=== PATIENT | male | born 1980 | race Caucasian/White ===

== ENCOUNTER 2017-05-12 09:18 | Observation (INO) ==
[2017-05-12] MEDS ORDERED: Ondansetron 4 MG/2 ML VIAL IVP ONE (09:26)
--- NOTE | 2017-05-12 09:43 | Emergency Department Note ---
Disposition Clinical Impression: Hyperglycemia Disposition: Admitted As Inpatient Condition: Good Reasons to Return/Additional Instructions: . Referrals: Catie Jansen DO [Primary Care Provider] - Forms: ED Satisfaction Letter Recheck wound or abnormal lab - General Chief Complaint: ED Neuro Symptoms/Deficit Stated Complaint: high blood sugar Time Seen by Provider: 05/12/17 09:25 Source: patient Mode of arrival: private vehicle Limitations: no limitations Nursing Notes Reviewed: Yes Vital Signs Reviewed: Yes - History of Present Illness HPI Narrative: 36-year-old male history of type 2 diabetes that is poorly controlled who presents to the ER from the residency clinic due to hyperglycemia and visual changes. Patient states he got off work last night was going to his appointment for routine follow-up and was told to come here. He states that he was told that he might go home fall asleep and never wake up again. Patient reports they checked his glucose therapy office today and it was too high to read. He also states he has had some visual changes. He actually reports that his glucose has been elevated for the last month. He does report polydipsia and polyphagia as well as polyuria. Reports nausea without vomiting or diarrhea. No abdominal pain. Also complaining of left foot pain for 2 months for which she has an x-ray ordered but was requesting to have it done today. No trauma. No other complaints. Pt Subjective Complaint: abnormal lab(s) Initial Visit (ago): hour(s) Symptoms Since Prior Visit: no new symptoms Associated symptoms: nausea - Related Data Home Medications Medication Instructions Recorded Confirmed Gabapentin [Neurontin] 300 mg PO TID 11/23/15 05/12/17 Furosemide [Lasix] 40 mg PO DAILY 05/12/17 05/12/17 Ibuprofen [Motrin] 600 mg PO Q8HR PRN 05/12/17 05/12/17 Insulin LISPRO [HumaLOG] 33 units SQ TIDWM 05/12/17 05/12/17 Lisinopril [Zestril] 20 mg PO DAILY 05/12/17 05/12/17 Metoprolol [Lopressor] 25 mg PO BID 05/12/17 05/12/17 Omeprazole [PriLOSEC] 40 mg PO DAILY 05/12/17 05/12/17 Previous Rx's Medication Instructions Recorded Insulin DETEMIR [Levemir] 40 unit SQ BID 30 Days 05/31/15 Metformin HCl [Glucophage] 1,000 mg PO BID #60 tablet 04/16/16 Allergies Allergy/AdvReac Type Severity Reaction Status Date / Time ciprofloxacin [From Cipro] Allergy Rash Verified 05/12/17 09:24 All systems ED: reviewed and negative except as stated. Constitutional: Denies: fever Cardiovascular: Denies: chest pain Respiratory: Denies: dyspnea Gastrointestinal: Reports: nausea. Denies: abdominal pain, vomiting, diarrhea Genitourinary: Reports: frequency. Denies: dysuria, hematuria Past Medical History - Past Medical History Attestation: Yes The following information was validated with the patient. Source: patient Medical history: Reports: diabetes, hypertension Surgical history: Reports: other Psychiatric history: Reports: no psych history - Social History Smoking Status: Never smoker Smokeless Tobacco Status: No Alcohol use: Reports: none Drug use: Reports: none, other Physical Exam - General Limitations: no limitations General appearance: alert, in no apparent distress - Head Head exam: atraumatic, normocephalic - Eye Eye exam: Present: normal appearance - ENT ENT exam: normal exam - Neck Neck exam: Present: normal inspection - Chest Chest inspection: Present: normal inspection, symmetric chest wall rise - Respiratory Respiratory exam: Present: normal lung sounds bilaterally - Cardiovascular Cardiovascular exam: Present: regular rate, normal rhythm, normal heart sounds - Abdominal Exam Abdominal exam: Present: soft, Non-Tender. Absent: tenderness, distention, rigidity - Extremities Exam Extremities exam: Present: normal inspection, full ROM - Expanded Upper Extremity Exam Shoulder exam: Present: normal inspection, full ROM Arm exam: Present: normal inspection, full ROM Elbow exam: Present: normal inspection, full ROM Forearm/Wrist exam: Present: normal inspection, full ROM Hand exam: Present: normal inspection, full ROM - Expanded Lower Extremity Exam Hip/Pelvis exam: Present: normal inspection, full ROM Upper leg exam: Present: normal inspection, full ROM Knee exam: Present: normal inspection, full ROM Lower leg exam: Present: normal inspection, full ROM Ankle exam: Present: normal inspection, full ROM Foot/toe exam: Present: normal inspection, full ROM, tenderness (Tenderness along the lateral aspect of the left foot.) - Skin Skin exam: Present: warm, dry, intact Course Course Narrative: Patient seen and examined. Vital signs reviewed. We will get baseline labs to evaluate for DKA as well as an x-ray of the left foot. Patient given IV fluids and Zofran. - Reevaluation(s) Reevaluation #1: Discussed results of labs and imaging with the patient. Vital Signs Temperature 98.0 F 05/12/17 09:19 Pulse Rate 79 05/12/17 09:19 Respiratory Rate 16 05/12/17 09:19 Blood Pressure 137/87 05/12/17 09:19 O2 Sat by Pulse Oximetry 95 05/12/17 09:19 Temperature 98.0 F 05/12/17 09:19 Pulse Rate 79 05/12/17 09:19 Respiratory Rate 16 05/12/17 09:19 Blood Pressure 137/87 05/12/17 09:19 O2 Sat by Pulse Oximetry 95 05/12/17 09:19 Oxygen Delivery Oxygen Delivery Room Air Recheck wound or abnormal lab - MDM Narrative Medical decision making narrative: 36-year-old male presents to the ER from his primary care office for hypoglycemia. Reports he is poorly controlled and that he has had high readings for over a month. Was having some visual changes. No chest pain or shortness of breath. He has been nauseous but no vomiting. Patient noted to be hyperglycemic here of 714. Given 2 L of IV fluids as well as started on insulin drip. No gap. He is not acidotic. Admitted to the hospitalist service. - Lab Data Lab results reviewed: Yes I reviewed the patient's lab results. Result diagrams: 05/12/17 09:59 05/12/17 09:59 Lab Results 05/12/17 05/12/17 05/12/17 Range/Units 09:23 09:24 09:59 WBC 7.6 (4.3-11.1) K/mcL RBC 5.41 (4.19-5.50) M/mcL Hgb 14.2 (12.9-16.9) g/dL Hct 43.3 (37.5-50.1) % MCV 80.0 L (83.0-100.0) fL MCH 26.2 L (28.0-33.3) pg MCHC 32.8 (31.6-35.5) g/dL RDW 13.1 (11.5-14.5) % Plt Count 166 (140-400) K/mcL MPV 10.0 (9.4-12.4) fL Immature Gran % 0.5 (0-4) % Seg Neutrophils % 69.5 % Lymphocytes % 20.0 % Monocytes % 8.6 % Eosinophils % 0.7 % Basophils % 0.7 % Neutrophils # 5.3 (1.6-8.9) K/mcL Lymphocytes # 1.5 (0.6-4.6) K/mcL Monocytes # 0.7 (0.0-1.3) K/mcL Eosinophils # 0.1 (0.0-0.6) K/mcL Basophils # 0.1 (0.0-0.2) K/mcL VBG pH (7.32-7.42) pH Units VBG pCO2 (41-51) mmHg VBG pO2 (25-50) mmHg VBG HCO3 (21-27) mEq/L Sodium (136-145) mEq/L Potassium (3.5-5.1) mEq/L Chloride (98-107) mEq/L Carbon Dioxide (23-29) mEq/L BUN (6-20) mg/dL Creatinine (0.70-1.30) mg/dL Est GFR ( Amer) (> 60) Est GFR (Non-Af Amer) (> 60) BUN/Creatinine Ratio (6-26) Glucose (70-105) mg/dL POC Glucose > 600 H* > 600 H* (58-89) Calculated Osmolality (280-300) Calcium (8.6-10.3) mg/dL Beta-Hydroxybutyric Acd (0.02-0.27) mmol/L 05/12/17 05/12/17 Range/Units 09:59 10:15 WBC (4.3-11.1) K/mcL RBC (4.19-5.50) M/mcL Hgb (12.9-16.9) g/dL Hct (37.5-50.1) % MCV (83.0-100.0) fL MCH (28.0-33.3) pg MCHC (31.6-35.5) g/dL RDW (11.5-14.5) % Plt Count (140-400) K/mcL MPV (9.4-12.4) fL Immature Gran % (0-4) % Seg Neutrophils % % Lymphocytes % % Monocytes % % Eosinophils % % Basophils % % Neutrophils # (1.6-8.9) K/mcL Lymphocytes # (0.6-4.6) K/mcL Monocytes # (0.0-1.3) K/mcL Eosinophils # (0.0-0.6) K/mcL Basophils # (0.0-0.2) K/mcL VBG pH 7.38 (7.32-7.42) pH Units VBG pCO2 44 (41-51) mmHg VBG pO2 67 H (25-50) mmHg VBG HCO3 26 (21-27) mEq/L Sodium 126 L (136-145) mEq/L Potassium 4.7 (3.5-5.1) mEq/L Chloride 91 L (98-107) mEq/L Carbon Dioxide 25 (23-29) mEq/L BUN 21 H (6-20) mg/dL Creatinine 1.07 (0.70-1.30) mg/dL Est GFR ( Amer) > 60 (> 60) Est GFR (Non-Af Amer) > 60 (> 60) BUN/Creatinine Ratio 20 (6-26) Glucose 714 H* (70-105) mg/dL POC Glucose (58-89) Calculated Osmolality 299 (280-300) Calcium 9.4 (8.6-10.3) mg/dL Beta-Hydroxybutyric Acd 0.46 H (0.02-0.27) mmol/L - Radiology Data Radiology results reviewed: Yes I reviewed the patient's radiology results. Foot X-Ray 05/12/17 09:34 IMPRESSION: 1. No significant change without acute abnormality. D/ / Orestes Andrea MD / Orestes Andrea MD Interpreting Provider: Orestes Andrea MD S.B.A.R. - S.B.A.R. Situation: Demographics, MOA Background: Presenting Complaint, Relevant PMH, Meds, & Allergies Assessment: Course and respsone to treatment, Exam Concerns, Patient/Family Expectation, Pertinant Lab Results Recommendation: Barrier(s) to disposition, Recommendation based on pending studies, treatments, or consults S.B.A.RSu Report Given to: Dr. Lul Pabon Repor Time: 12:14
[2017-05-12] MEDS: 0.9 % Sodium Chloride 1,000 ML IVC SCH ×2 (09:57→11:02)
[2017-05-12 10:11] LABS: Basophils # 0.1 K/mcL (0.0-0.2); Basophils % 0.7 %; Eosinophils # 0.1 K/mcL (0.0-0.6); Eosinophils % 0.7 %; Hematocrit 43.3 % (37.5-50.1); Hemoglobin 14.2 g/dL (12.9-16.9); Immature Granulocytes % 0.5 % (0-4); Lymphocytes # 1.5 K/mcL (0.6-4.6); Mean Corpuscular HGB Conc 32.8 g/dL (31.6-35.5); Mean Corpuscular Hemoglobin 26.2 pg (28.0-33.3); Monocytes # 0.7 K/mcL (0.0-1.3); Monocytes % 8.6 %; Neutrophils # 5.3 K/mcL (1.6-8.9); Platelet Count 166 K/mcL (140-400); Red Blood Count 5.41 M/mcL (4.19-5.50); Red Cell Distribution Width 13.1 % (11.5-14.5); Segmented Neutrophils % 69.5 %
[2017-05-12] MEDS ORDERED: Insulin Human Regular 10 UNIT in 0.9 % Sodium Chloride 10 ML IV ONE (10:13)
[2017-05-12 10:18] LABS: Beta-Hydroxybutyric Acid 0.46 mmol/L (0.02-0.27)
[2017-05-12 10:19] LABS: VBG HCO3 26 mEq/L (21-27); VBG PCO2 44 mmHg (41-51); VBG PH 7.38 pH Units (7.32-7.42); VBG PO2 67 mmHg (25-50)
--- NOTE | 2017-05-12 10:38 | Emergency Department Note ---
START Narrative - START START: I examined this patient and my medical decision-making was reviewed with the Resident Physician. I agree with the documented findings, disposition and treatment plan as described except to the extent set forth below. 36-year-old male presents emergency room for elevated blood sugar. Patient appears to be in DKA with elevated serum ketones. He has a history of DKA in the past. No other symptoms other than he says he has been urinating a lot and having excessive thirst. He denies any recent sickness or illness. No vomiting. No diarrhea. No urinary complaints other than polyuria. No fevers or chills. No chest pain shortness of breath. Patient will need to be admitted. IV fluids and insulin. Critical care time of 35 minutes spent a medical management of hyperglycemia and concerns for diabetic ketoacidosis.
[2017-05-12 11:08] LABS: BUN/Creatinine Ratio 20 (6-26); Blood Urea Nitrogen 21 mg/dL (6-20); Calcium 9.4 mg/dL (8.6-10.3); Carbon Dioxide 25 mEq/L (23-29); Chloride 91 mEq/L (98-107); Glucose 714 mg/dL (70-105); Osmolality,Calculated 299 (280-300); Potassium 4.7 mEq/L (3.5-5.1); Sodium 126 mEq/L (136-145); eGFR For African Americans > 60 (> 60); eGFR For Non-African Americans > 60 (> 60)
[2017-05-12] MEDS ORDERED: 0.9 % Sodium Chloride 1,000 ML IVC SCH (11:30)
[2017-05-12] MEDS: Insulin Human Regular 100 UNIT in 0.9 % Sodium Chloride 100 ML IVC SCH ×2 (12:00→18:29)
[2017-05-12] MEDS ORDERED: Naloxone 0.4 MG/ML INJ IVP PRN (13:13)
[2017-05-12] MEDS ORDERED: Ondansetron 4 MG/2 ML VIAL IVP PRN (13:13)
[2017-05-12] MEDS ORDERED: Acetaminophen 325 MG TABLET PO PRN (13:13)
[2017-05-12] MEDS ORDERED: D5% in 0.45% NACL 1,000 ML IVC PRN (13:18)
[2017-05-12] MEDS ORDERED: Insulin Regular, Human 100 UNIT/ML IV PRN (13:18)
[2017-05-12] MEDS ORDERED: *HR* Dextrose 50 % in Water (Syg) 50 ML SYRINGE IVP PRN (13:18)
[2017-05-12] MEDS ORDERED: *HR* Morphine 2 MG/ML SYRINGE IVP ONE (13:19)
--- NOTE | 2017-05-12 13:41 | Internal Med History&Physical ---
Date of Encounter: 05/12/17 Time of Encounter: 13:00 Assessment and Plan (1) Hyperosmolar nonketotic coma in diabetes Current visit: No Status: Acute 1 patient has been experiencing blurry vision as well as polyuria polydipsia polyphagia. He has not been taking his basal insulin for some time now his blood sugars have been reading high on his Accu-Chek machine since April. He was seen as PCP today and again blood sugar reading high-he was 700 in the ER. Initiated on insulin drip as well as IV fluids we will continue insulin drip Accu-Cheks every hour and titrate per protocol We will monitor electrolytes every 4 hours and adjust fluids/electrolytes as needed We will consult director of social work concerning -insurance and insulin Consult labor standards director We will check urinalysis for any possible infectious process (2) HTN (hypertension) Current visit: No Status: Acute Presently controlled we will continue with home medications Qualifiers: Hypertension type: essential hypertension Qualified Code(s): I10 - Essential (primary) hypertension (3) DVT prophylaxis Current visit: No Status: Acute [facility] Internal Medicine - H&P: HPI Chief complaint: blurry vision Admitted From: Emergency Dept Plans for Post Hospital Care: Home History of present illness: Mr. Rose is a 36 year old male past medical history of diabetes2 hypertension. Patient is a diabetic he went to a scheduled PCP appointment today blood sugar was found to be high, he has been experiencing visual changes or blurry vision for the past month in the past few weeks he has been experiencing polyuria and polyphagia polydipsia nausea no vomiting diarrhea or abdominal pain. Accu-Cheks have been reading "high" since April Patient reports that he has not been taking his long-acting insulin for some time now, due to changes in his insurance, and he was not able to afford insulin He states "it was still warm out the last time I took my basal insulin" he has been taking his oral metformin as well as sliding scale insulin. He also admits to recent upper respiratory infection but does not have any urinary complaints. He also complains of left foot pain that has been going on for 2 months denies any trauma. He was seen in the emergency room and lab work revealed blood sugars in the 700 and iron gap was 10 and leukocytosis or tachycardia. He has been given IV fluid and initiated on insulin drip. X-ray of right foot with no fractures or acute changes He has been admitted for further workup evaluation. I did review this case with Dr. Mccarty who agrees with plan. Past Med Surg Social Fam HX - Past Medical History Medical history: diabetes, hypertension Psychiatric history: no psych history - Past Surgical History Surgical History: other - Social History Smoking Status: Never smoker Smokeless Tobacco Status: No Alcohol use: none Drug use: none, other - Family History Mother Living Status: Still Living Hx Family Cardiac Disorders: Yes (Heart problem, HTN) Hx Family Endocrine Disorder: Yes (Diabetes, underwent amputation recently.) Father Living Status: Hx Family Cardiac Disorders: Yes (Heart problem, HTN) Hx Family Endocrine Disorder: Yes (Diabetes) Internal Medicine - H&P: Meds Insulin DETEMIR [Levemir] 40 unit SQ BID 30 Days 05/31/15 [Rx] Gabapentin [Neurontin] 300 mg PO TID 11/23/15 [History] Metformin HCl [Glucophage] 1,000 mg PO BID #60 tablet 04/16/16 [Rx] Furosemide [Lasix] 40 mg PO DAILY 05/12/17 [History] Ibuprofen [Motrin] 600 mg PO Q8HR PRN 05/12/17 [History] Insulin LISPRO [HumaLOG] 33 units SQ TIDWM 05/12/17 [History] Lisinopril [Zestril] 20 mg PO DAILY 05/12/17 [History] Metoprolol [Lopressor] 25 mg PO BID 05/12/17 [History] Omeprazole [PriLOSEC] 40 mg PO DAILY 05/12/17 [History] 3 Allergy/AdvReac Type Severity Reaction Status Date / Time ciprofloxacin [From Cipro] Allergy Rash Verified 05/12/17 09:24 All Systems PM: A 10-system review of systems was performed and is negative for pertinent findings except as documented above in the HPI. - Constitutional Constitutional: no chills, no fever(s), no night sweats - EENT Eyes: no change in vision, no discharge, no pain, no photophobia Nose, mouth and throat: no dysphagia, no nasal discharge, no neck pain, no sore throat - Cardiovascular Cardiovascular ROS IM: no chest pain, no diaphoresis, no dyspnea, no lightheadedness, no palpitations, no syncope - Respiratory Respiratory: no cough, no dyspnea, no wheezing, no excessive phlegm production - Gastrointestinal Gastrointestinal: nausea - Genitourinary Additional comments: Polyuria - Integumentary Integumentary IM: sores, no rash, no unusual bruising - Neurological Neurological ROS: no confusion, no convulsions, no focal weakness, no numbness, no tingling, no tremor(s) - Endocrine Endocrine IM: polydipsia, polyphagia, polyuria - Hematologic/Lymphatic Hematologic/Lymphatic: no easy bruising - Constitutional Vitals: Temp Pulse Resp BP Pulse Ox 98.0 F 79 16 137/87 95 05/12/17 09:19 05/12/17 09:19 05/12/17 09:19 05/12/17 09:19 05/12/17 09:19 General appearance: Present: A&O X 3, answers questions appropriately - Head Head exam: Present: atraumatic, normocephalic - Eye Eye exam: Present: PERRL, conjuntiva pink, sclera anicteric Pupils: Present: PERRL - Neck Neck exam general surgery: Present: supple, trachea midline. Absent: lymphadenopathy - Respiratory Respiratory exam: Present: CTAB. Absent: accessory muscle use, rales, rhonchi, wheezes - Cardiovascular Cardiovascular exam: Present: RRR, +S1, +S2. Absent: diastolic murmur, gallop, rubs, systolic murmur - GI/Abdominal GI/Abdominal exam: Present: normal bowel sounds, soft, no peritoneal signs. Absent: distended, tenderness - Extremities Exam Extremities exam: Present: tenderness, warm, radial pulses palpable and symmetrical. Absent: calf tenderness, cyanotic, pedal edema - Neurological Exam Neurological exam: Present: CN II-XII intact, oriented X3, no focal deficits. Absent: pronater drift, facial droop, speech deficit - Skin Skin exam: Present: dry, intact Internal Med - H&P Results - Labs CBC & Chem 7: 05/12/17 09:59 05/12/17 09:59 Labs: Short CBC 05/12/17 Range/Units 09:59 WBC 7.6 (4.3-11.1) K/mcL Hgb 14.2 (12.9-16.9) g/dL Hct 43.3 (37.5-50.1) % Plt Count 166 (140-400) K/mcL Neutrophils # 5.3 (1.6-8.9) K/mcL BMP 05/12/17 09:59 Sodium 126 L Potassium 4.7 Chloride 91 L Carbon Dioxide 25 BUN 21 H Creatinine 1.07 Glucose 714 H* Calcium 9.4 - ABG Interpretation ABG results: 05/12/17 10:15 VBG pH 7.38 VBG pCO2 44 VBG pO2 67 H VBG HCO3 26 Interpretation: normal - Impressions ITS Impressions Foot X-Ray 05/12/17 09:34 IMPRESSION: 1. No significant change without acute abnormality. D/ / Orestes Andrea MD / Orestes Andrea MD Interpreting Provider: Orestes Andrea MD - Diagnostic Studies Other Images Additional comments: Foot X-Ray 05/12/17 09:34
[2017-05-12 13:54] LABS: VBG HCO3 28 mEq/L (21-27); VBG PCO2 50 mmHg (41-51); VBG PH 7.36 pH Units (7.32-7.42); VBG PO2 46 mmHg (25-50)
[2017-05-12 14:13] LABS: Bilirubin,Urine Negative (Negative); Blood,Urine Negative (Negative); Clarity,Urine Clear (Clear); Color,Urine Yellow (Yellow); Glucose,Urine (UA) >=1000 mg/dL (Normal); Ketones,Urine Negative (Negative); Leukocyte Esterase,Urine Negative (Negative); Nitrite,Urine Negative (Negative); PH,Urine 6.5 pH Units (5.0-8.0); Protein,Urine Negative (Neg-Trace); Specific Gravity,Urine 1.022 (1.010-1.025); Urobilinogen,Urine Normal (Normal)
--- NOTE | 2017-05-12 14:13 | Event Note ---
Date of Encounter: 05/12/17 Time of Encounter: 14:01 Patient seen and examined with nurse practitioner. Hyperglycemic hyperosmolar state due to noncompliance with long-acting insulin. Will hydrate start insulin drip. all source intelligence to see patient. Patient is full code.
[2017-05-12] MEDS: Gabapentin 300 MG CAPSULE PO SCH ×2 (15:07→21:35)
[2017-05-12] MEDS ORDERED: Insulin Human Regular 100 UNIT in 0.9 % Sodium Chloride 100 ML IVC SCH (17:15)
[2017-05-12] MEDS: D5% in 0.45% NACL w KCl 20 MEQ/1,000 ML MLS IVC PRN ×2 (17:16→21:36)
[2017-05-12 18:39] LABS: BUN/Creatinine Ratio 17 (6-26); Blood Urea Nitrogen 17 mg/dL (6-20); Calcium 9.3 mg/dL (8.6-10.3); Carbon Dioxide 31 mEq/L (23-29); Chloride 98 mEq/L (98-107); Glucose 159 mg/dL (70-105); Osmolality,Calculated 285 (280-300); Potassium 4.3 mEq/L (3.5-5.1); Sodium 135 mEq/L (136-145); eGFR For African Americans > 60 (> 60); eGFR For Non-African Americans > 60 (> 60)
[2017-05-12 18:59] LABS: Alanine Aminotransferase 46 Units/L (7-52); Albumin 3.7 g/dL (3.5-5.7); Albumin/Globulin Ratio 1.1 (1.1-2.2); Alkaline Phosphatase 87 Units/L (34-104); Aspartate Amino Transferase 36 Units/L (13-39); Bilirubin,Direct 0.1 mg/dL (0.0-0.2); Bilirubin,Indirect 0.4 mg/dL (0.0-1.2); Bilirubin,Total 0.5 mg/dL (0.3-1.0); Globulin 3.5 g/dL (2.4-3.5); Total Protein 7.2 g/dL (6.4-8.9)
[2017-05-12] MEDS ORDERED: *HR* HYDROcodone/Acet 5/325 mg TABLET PO PRN (19:01)
[2017-05-12] MEDS ORDERED: D5% in Water 1,000 ML IVC PRN (20:46)
[2017-05-12] MEDS ORDERED: Insulin LISPRO 300 UNITS/3 ML VIAL SQ SCH (21:00)
[2017-05-12 21:38] LABS: VBG HCO3 28 mEq/L (21-27); VBG PCO2 53 mmHg (41-51); VBG PH 7.34 pH Units (7.32-7.42); VBG PO2 56 mmHg (25-50)
[2017-05-12] MEDS: Insulin DETEMIR 100 UNIT/ML X5UNITS SQ SCH (22:40)
[2017-05-13 01:40] LABS: Estimated Average Glucose > 355 mg/dl; Hemoglobin A1C >= 14.1 %
[2017-05-13 01:42] LABS: BUN/Creatinine Ratio 17 (6-26); Blood Urea Nitrogen 16 mg/dL (6-20); Calcium 8.5 mg/dL (8.6-10.3); Carbon Dioxide 28 mEq/L (23-29); Chloride 99 mEq/L (98-107); Glucose 144 mg/dL (70-105); Osmolality,Calculated 280 (280-300); Potassium 4.2 mEq/L (3.5-5.1); Sodium 133 mEq/L (136-145); eGFR For African Americans > 60 (> 60); eGFR For Non-African Americans > 60 (> 60)
[2017-05-13 05:43] LABS: Basophils % 0.6 %; Eosinophils # 0.1 K/mcL (0.0-0.6); Eosinophils % 1.6 %; Hematocrit 36.6 % (37.5-50.1); Immature Granulocytes % 0.6 % (0-4); Lymphocytes # 1.9 K/mcL (0.6-4.6); Lymphocytes % 27.9 %; Mean Corpuscular HGB Conc 32.5 g/dL (31.6-35.5); Mean Corpuscular Hemoglobin 26.7 pg (28.0-33.3); Mean Corpuscular Volume 82.2 fL (83.0-100.0); Mean Platelet Volume 9.8 fL (9.4-12.4); Monocytes # 0.6 K/mcL (0.0-1.3); Monocytes % 9.2 %; Neutrophils # 4.1 K/mcL (1.6-8.9); Platelet Count 131 K/mcL (140-400); Red Blood Count 4.45 M/mcL (4.19-5.50); Red Cell Distribution Width 13.2 % (11.5-14.5); Segmented Neutrophils % 60.1 %
[2017-05-13 05:44] LABS: BUN/Creatinine Ratio 16 (6-26); Blood Urea Nitrogen 16 mg/dL (6-20); Calcium 8.2 mg/dL (8.6-10.3); Carbon Dioxide 28 mEq/L (23-29); Chloride 99 mEq/L (98-107); Glucose 222 mg/dL (70-105); Magnesium 1.6 mg/dL (1.6-2.6); Osmolality,Calculated 280 (280-300); Potassium 4.6 mEq/L (3.5-5.1); Sodium 131 mEq/L (136-145); eGFR For African Americans > 60 (> 60); eGFR For Non-African Americans > 60 (> 60)
[2017-05-13 05:47] LABS: Hemoglobin 11.9 g/dL (12.9-16.9)
[2017-05-13] MEDS ORDERED: *HR* Enoxaparin 40 MG/0.4 ML SYRINGE SQ SCH (06:00)
[2017-05-13] MEDS: Gabapentin 300 MG CAPSULE PO SCH ×2 (07:54→16:14)
[2017-05-13] MEDS: Insulin DETEMIR 100 UNIT/ML X5UNITS SQ SCH (07:54)
[2017-05-13] MEDS: Insulin LISPRO 300 UNITS/3 ML VIAL SQ SCH ×4 (07:55→12:12)
--- NOTE | 2017-05-13 08:38 | Discharge Summary ---
<Ochoa Delacruz - Last Filed: 05/13/17 09:55> Date of Encounter: 05/13/17 Time of Encounter: 08:26 - Discharge Diagnosis (1) Hyperosmolar nonketotic coma in diabetes Priority: Primary Status: Acute (2) Insulin dependent diabetes mellitus Priority: Secondary Status: Chronic (3) HTN (hypertension) Priority: Secondary Status: Chronic Qualifiers: Hypertension type: essential hypertension Qualified Code(s): I10 - Essential (primary) hypertension - Discharge Medications Prescriptions: Insulin DETEMIR [Levemir Flextouch] 100 unit SQ BID #1 insuln.pen Home Medications: Gabapentin [Neurontin] 300 mg PO TID 11/23/15 [History] Metformin HCl [Glucophage] 1,000 mg PO BID #60 tablet 04/16/16 [Rx] Furosemide [Lasix] 40 mg PO DAILY 05/12/17 [History] Ibuprofen [Motrin] 600 mg PO Q8HR PRN 05/12/17 [History] Insulin LISPRO [HumaLOG] 33 units SQ TIDWM 05/12/17 [History] Lisinopril [Zestril] 20 mg PO DAILY 05/12/17 [History] Metoprolol [Lopressor] 25 mg PO BID 05/12/17 [History] Omeprazole [PriLOSEC] 40 mg PO DAILY 05/12/17 [History] Insulin DETEMIR [Levemir Flextouch] 100 unit SQ BID #1 insuln.pen 05/13/17 [Rx] Allergies/Adverse Reactions: 3 Allergy/AdvReac Type Severity Reaction Status Date / Time ciprofloxacin [From Cipro] Allergy Rash Verified 05/12/17 09:24 Date of admission: 05/12/17 18:03 Primary care physician: Catie Jansen DO Discharging clinician: Ochoa Delacruz Anticipated date of discharge: 05/13/17 - Patient Status Disposition: Home, Self-Care Condition: Good Functional capacity at discharge: independent ambulation Overall status at discharge: patient is back to baseline - Discharge Instructions Instructions: Diabetic Ketoacidosis (DC), Diabetes Mellitus Type 1 in Adults ( DC), Diabetes Mellitus Type 2 in Adults (DC) Follow Up With: Catie Jansen DO [Primary Care Provider] - 05/19/17 10:00 am Additional Instructions: Follow up with PCP within 1 week of hospital discharge. Keep a log of your blood glucose and take with you to your family doctor. - Diet and Activity Activity: resume usual activities as tolerated Diet: diabetic diet Hospital course: Mr. Rose is a 36 year old male who presented to [facility] ED on 05/12/2016 at 09: 34 from residency clinic due to hyperglycemia and visual changes. Patient stated then that he had been experiencing blurry vision, polydypsia, polyphagia , and polyuria. He stated that his glucose readings at home had been high as well. Patient states that his insurance coverage lapsed some time ago "when it was still warm out," and that he has not had access to his insulin since then. Patient's glucose in the the ED was 714 without an elevated anion gap and he was subsequently diagnosed with hyperosmolar nonketotic acidosis. Patient was admitted to and started on an insulin drip as well as IV fluids. Mr. Rose' s glucose level has since been in the 140-180 range and he symptoms have resolved. He has no acute compaints at the time and he states that his blurry vision, polyuria, polydypsia, and polyphagia have resoved. He states that he his feeling well and that his insurance has recently been reinstated and that he has already called in a prescription for his Levemir. He is also on sliding scale insulin at home and will be going home on Levemir 40 units twice a day. He states he already has a glucometer at home and has the necessary supplies. - Time Spent with Patient Total time spent providing and/or coordinating discharge services: Greater than 30 minutes - Constitutional Vitals: Temp Pulse Resp BP Pulse Ox 97.7 F 63 17 123/70 99 05/13/17 07:28 05/13/17 08:11 05/13/17 07:28 05/13/17 07:28 05/13/17 07:28 General appearance: Present: A&O X 3, morbidly obese, pleasant, no acute distress, answers questions appropriately - Head Head exam: Present: normal inspection - Eye Eye exam: Present: normal appearance, PERRL, conjuntiva pink. Absent: conjunctival injection, nystagmus, scleral icterus - Neck Neck exam general surgery: Present: normal inspection - Respiratory Respiratory exam: Present: CTAB - Cardiovascular Cardiovascular exam: Present: RRR, +S1, +S2. Absent: diastolic murmur, gallop, rubs, systolic murmur - GI/Abdominal GI/Abdominal exam: Present: normal bowel sounds, soft, no peritoneal signs <Eldon Adamson - Last Filed: 05/13/17 17:24> Date of Encounter: 05/13/17 Date of admission: 05/12/17 13:53 Primary care physician: Catie Jansen DO Consults: 05/12/17 14:04 Consult to Senior Field Engineer [CONS] Routine Comment: Reason for Consult: Insulin education, diet Hospital course: Mr. Rose is a 36 year old male - Time Spent with Patient Total time spent providing and/or coordinating discharge services: - Constitutional Vitals: Temp Pulse Resp BP Pulse Ox 97.7 F 63 17 115/62 99 05/13/17 11:28 05/13/17 12:20 05/13/17 11:28 05/13/17 12:20 05/13/17 11:28 - Attending Attestation I examined this patient and my medical decision-making was reviewed with the Resident Physician Dr. Delacruz. I agree with the documented findings, disposition and treatment plan as described except to the extent set forth below. This is 36 y/o M admitted with severe hyperglycemia hyper osmolar state. With IV hydration and Insulin gtt his symptoms improved. He ran out of his insulin for few days, seems to be non compliance with insulin. So counseled the pt aboout importance of taking his inuslin regularly, since with in last year his HbA1C almost doubled. Dr. Delacruz did talk to PCP resident about close f/u on his BS. Provided him Rx for Levemir until his prior auth taken care. Gen: He is alert, awake anx O x3 Chest: CTA
[2017-05-13] MEDS ORDERED: Lisinopril 20 MG TABLET PO SCH (09:00)
[2017-05-13 10:34] LABS: BUN/Creatinine Ratio 16 (6-26); Blood Urea Nitrogen 15 mg/dL (6-20); Calcium 8.1 mg/dL (8.6-10.3); Carbon Dioxide 25 mEq/L (23-29); Chloride 100 mEq/L (98-107); Glucose 311 mg/dL (70-105); Osmolality,Calculated 285 (280-300); Potassium 4.2 mEq/L (3.5-5.1); Sodium 131 mEq/L (136-145); eGFR For African Americans > 60 (> 60); eGFR For Non-African Americans > 60 (> 60)
[2017-05-13 12:24] VITALS: BP 115/62
[2017-05-13 13:22] LABS: BUN/Creatinine Ratio 16 (6-26); Blood Urea Nitrogen 15 mg/dL (6-20); Calcium 8.3 mg/dL (8.6-10.3); Carbon Dioxide 26 mEq/L (23-29); Chloride 101 mEq/L (98-107); Glucose 252 mg/dL (70-105); Osmolality,Calculated 281 (280-300); Potassium 4.6 mEq/L (3.5-5.1); Sodium 131 mEq/L (136-145); eGFR For African Americans > 60 (> 60); eGFR For Non-African Americans > 60 (> 60)
== END 2017-05-13 16:50 | disposition home or self-care (01) ==
LOC: EMEROO 09:18 → 2NNU 09:18
PROVIDERS: ADMIT Internal Medicine; ATTEND Internal Medicine

== ENCOUNTER 2020-05-14 07:43 | Inpatient (IN) ==
[2020-05-14] MEDS ORDERED: Isovue-370 500 ML BOTTLE IVP ONE (08:11)
[2020-05-14] MEDS ORDERED: 0.9 % Sodium Chloride 1,000 ML IVC ONE (08:16)
[2020-05-14 08:21] LABS: Basophils # 0.1 K/mcL (0.0-0.2); Basophils % 0.4 %; Eosinophils % 0.2 %; Hematocrit 41.1 % (37.5-50.1); Hemoglobin 13.4 g/dL (12.9-16.9); Immature Granulocytes % 0.5 % (0-4); Lymphocytes # 1.1 K/mcL (0.6-4.6); Lymphocytes % 8.2 %; Mean Corpuscular HGB Conc 32.6 g/dL (31.6-35.5); Mean Corpuscular Hemoglobin 25.2 pg (28.0-33.3); Mean Corpuscular Volume 77.4 fL (83.0-100.0); Mean Platelet Volume 10.2 fL (9.4-12.4); Monocytes # 1.7 K/mcL (0.0-1.3); Monocytes % 13.3 %; Neutrophils # 10.1 K/mcL (1.6-8.9); Platelet Count 142 K/mcL (140-400); Red Blood Count 5.31 M/mcL (4.19-5.50); Red Cell Distribution Width 13.7 % (11.5-14.5); Segmented Neutrophils % 77.4 %
[2020-05-14 08:28] LABS: VBG HCO3 22 mEq/L (21-27); VBG PCO2 33 mmHg (41-51); VBG PH 7.43 pH Units (7.32-7.42); VBG PO2 85 mmHg (25-50)
[2020-05-14 08:42] LABS: BUN/Creatinine Ratio 12 (6-26); Blood Urea Nitrogen 15 mg/dL (6-20); Carbon Dioxide 21 mEq/L (23-29); Chloride 88 mEq/L (98-107); Glucose 425 mg/dL (70-105); Osmolality,Calculated 275 (280-300); Potassium 4.2 mEq/L (3.5-5.1); Sodium 123 mEq/L (136-145); Troponin I < 0.03 ng/mL (< 0.04); eGFR For African Americans > 60 (> 60); eGFR For Non-African Americans > 60 (> 60)
[2020-05-14 08:53] LABS: Lactate Dehydrogenase 182 Units/L (140-271)
[2020-05-14 09:11] LABS: Ferritin 380 ng/mL (20-250)
[2020-05-14] MEDS ORDERED: Insulin Regular, Human 100 UNIT/ML SUBQ ONE (09:11)
[2020-05-14] MEDS ORDERED: Ondansetron 4 MG/2 ML VIAL IVP PRN (10:31)
[2020-05-14] MEDS ORDERED: Naloxone 0.4 MG/ML INJ IVP PRN (10:31)
[2020-05-14] MEDS ORDERED: *HR* Dextrose 50 % in Water (Vial) 50 ML VIAL IVP PRN (10:34)
[2020-05-14] MEDS ORDERED: D5% in Water 1,000 ML IVC PRN (10:34)
[2020-05-14] MEDS ORDERED: Dextrose Gel 15 GM/37.5 ML TUBE PO PRN ×2 (10:34)
[2020-05-14] MEDS ORDERED: Vancomycin 2,000 MG/520 ML IV.SOLN IVPB ONE (11:01)
[2020-05-14] MEDS: 0.9 % Sodium Chloride 1,000 ML IVC SCH (11:31)
[2020-05-14] MEDS: Piperacillin/Tazobactam 3.375 GM in 0.9 % Sodium Chloride Mini Bag 100 ML IVPB SCH ×2 (11:32→18:49)
[2020-05-14] MEDS: Insulin LISPRO 300 UNITS/3 ML VIAL SUBQ SCH ×3 (13:20→21:12)
[2020-05-14] MEDS: *HR* Enoxaparin 30 MG/0.3 ML SYRINGE SQ SCH (17:42)
[2020-05-14 17:46] LABS: BUN/Creatinine Ratio 17 (6-26); Blood Urea Nitrogen 18 mg/dL (6-20); Calcium 8.6 mg/dL (8.6-10.3); Carbon Dioxide 20 mEq/L (23-29); Chloride 94 mEq/L (98-107); Glucose 444 mg/dL (70-105); Osmolality,Calculated 283 (280-300); Potassium 4.7 mEq/L (3.5-5.1); Sodium 126 mEq/L (136-145); eGFR For African Americans > 60 (> 60); eGFR For Non-African Americans > 60 (> 60)
[2020-05-14] MEDS ORDERED: Insulin DETEMIR 100 UNIT/ML X5UNITS SUBQ SCH (21:00)
[2020-05-15] MEDS: 0.9 % Sodium Chloride 1,000 ML IVC SCH (00:05)
[2020-05-15] MEDS: Vancomycin 1,750 MG/517.5 ML IV.SOLN IVPB SCH ×2 (00:06→12:53)
[2020-05-15] MEDS: Insulin LISPRO 300 UNITS/3 ML VIAL SUBQ SCH ×5 (00:34→17:03)
[2020-05-15] MEDS: Piperacillin/Tazobactam 3.375 GM in 0.9 % Sodium Chloride Mini Bag 100 ML IVPB SCH ×3 (03:36→20:09)
[2020-05-15] MEDS: *HR* Enoxaparin 30 MG/0.3 ML SYRINGE SQ SCH ×2 (05:45→19:55)
[2020-05-15 06:41] LABS: Basophils % 0.2 %; Eosinophils % 0.1 %; Hematocrit 37.9 % (37.5-50.1); Hemoglobin 12.1 g/dL (12.9-16.9); Immature Granulocytes % 2.1 % (0-4); Lymphocytes # 0.8 K/mcL (0.6-4.6); Lymphocytes % 9.4 %; Mean Corpuscular HGB Conc 31.9 g/dL (31.6-35.5); Mean Corpuscular Hemoglobin 25.5 pg (28.0-33.3); Mean Platelet Volume 10.1 fL (9.4-12.4); Monocytes # 0.5 K/mcL (0.0-1.3); Neutrophils # 7.4 K/mcL (1.6-8.9); Platelet Count 148 K/mcL (140-400); Red Blood Count 4.74 M/mcL (4.19-5.50); Red Cell Distribution Width 14.2 % (11.5-14.5); Segmented Neutrophils % 82.2 %
[2020-05-15 07:03] LABS: BUN/Creatinine Ratio 24 (6-26); Blood Urea Nitrogen 23 mg/dL (6-20); Calcium 8.6 mg/dL (8.6-10.3); Carbon Dioxide 19 mEq/L (23-29); Chloride 96 mEq/L (98-107); Glucose 410 mg/dL (70-105); Osmolality,Calculated 289 (280-300); Potassium 4.1 mEq/L (3.5-5.1); Sodium 129 mEq/L (136-145); eGFR For African Americans > 60 (> 60); eGFR For Non-African Americans > 60 (> 60)
[2020-05-15] MEDS ORDERED: Benzonatate 100 MG CAPSULE PO PRN (07:45)
[2020-05-15] MEDS ORDERED: Insulin Human Regular 5 UNIT in 0.9 % Sodium Chloride 10 ML IV ONE (07:51)
[2020-05-15] MEDS ORDERED: Insulin Regular, Human 100 UNIT/ML SUBQ ONE ×2 (07:53→08:30)
[2020-05-15] MEDS ORDERED: Insulin DETEMIR 100 UNIT/ML X5UNITS SUBQ SCH ×2 (09:00)
[2020-05-15 09:03] LABS: INR 1.4; Prothrombin Time 16.2 Seconds (9.4-12.1)
[2020-05-15 09:06] LABS: Estimated Average Glucose 344 mg/dl; Hemoglobin A1C 13.6 %
[2020-05-15 09:16] LABS: BUN/Creatinine Ratio 24 (6-26); Blood Urea Nitrogen 23 mg/dL (6-20); Calcium 8.4 mg/dL (8.6-10.3); Carbon Dioxide 19 mEq/L (23-29); Chloride 96 mEq/L (98-107); Glucose 409 mg/dL (70-105); Osmolality,Calculated 289 (280-300); Potassium 4.8 mEq/L (3.5-5.1); Sodium 129 mEq/L (136-145); eGFR For African Americans > 60 (> 60); eGFR For Non-African Americans > 60 (> 60)
[2020-05-15] MEDS: lisinopriL 20 MG TABLET PO SCH (09:16)
[2020-05-15] MEDS: Gabapentin 300 MG CAPSULE PO SCH ×3 (09:16→20:02)
[2020-05-15 09:17] LABS: Magnesium 2.5 mg/dL (1.6-2.6); Phosphorous 2.5 mg/dL (2.7-4.5)
[2020-05-15] MEDS: Ipratropium 1 PUFF INHALER IH SCH ×3 (10:00→20:28)
[2020-05-15] MEDS ORDERED: Insulin LISPRO 300 UNITS/3 ML VIAL SQ SCH (12:00)
[2020-05-15] MEDS ORDERED: Insulin LISPRO 300 UNITS/3 ML VIAL SUBQ SCH (12:00)
[2020-05-15] MEDS: Acetaminophen 325 MG TABLET PO PRN (13:17)
[2020-05-15 16:07] LABS: BUN/Creatinine Ratio 25 (6-26); Blood Urea Nitrogen 24 mg/dL (6-20); Calcium 7.9 mg/dL (8.6-10.3); Carbon Dioxide 16 mEq/L (23-29); Chloride 97 mEq/L (98-107); Glucose 525 mg/dL (70-105); Osmolality,Calculated 292 (280-300); Potassium 4.8 mEq/L (3.5-5.1); Sodium 127 mEq/L (136-145); eGFR For African Americans > 60 (> 60); eGFR For Non-African Americans > 60 (> 60)
[2020-05-15] MEDS ORDERED: Insulin Regular, Human 100 UNIT/ML IV ONE (16:32)
[2020-05-15] MEDS ORDERED: *HR* Dextrose 50 % in Water (Vial) 50 ML VIAL IVP PRN (16:32)
[2020-05-15] MEDS ORDERED: Insulin Regular, Human 100 UNIT/ML IV PRN (16:32)
[2020-05-15] MEDS ORDERED: Insulin Human Regular 100 UNIT in 0.9 % Sodium Chloride 100 ML IVC SCH ×2 (16:45→18:30)
[2020-05-15 18:58] LABS: ABG Base Excess -5 mEq/L (-2 to 3); ABG HCO3 19 mEq/L (21-27); ABG Oxygen Saturation 96 % (95-98); ABG PCO2 31 mmHg (35-45); ABG PO2 80 mmHg (85-104); ABG TCO2 20 mEq/L (20-26)
[2020-05-15] MEDS: 0.45 % Sodium Chloride w/KCl 20 MEQ/1,000 ML MLS IVC SCH ×2 (19:25→20:58)
[2020-05-15 20:04] LABS: BUN/Creatinine Ratio 30 (6-26); Blood Urea Nitrogen 24 mg/dL (6-20); Calcium 8.2 mg/dL (8.6-10.3); Carbon Dioxide 18 mEq/L (23-29); Chloride 98 mEq/L (98-107); Glucose 454 mg/dL (70-105); Osmolality,Calculated 288 (280-300); Potassium 4.7 mEq/L (3.5-5.1); Sodium 127 mEq/L (136-145); eGFR For African Americans > 60 (> 60); eGFR For Non-African Americans > 60 (> 60)
[2020-05-15] MEDS ORDERED: Insulin Human Regular 250 UNIT in 0.9 % Sodium Chloride 250 ML IVC SCH (21:15)
[2020-05-15] MEDS ORDERED: D5% in 0.45% NACL w KCl 20 MEQ/1,000 ML MLS IVC PRN (22:50)
[2020-05-15 23:24] LABS: BUN/Creatinine Ratio 24 (6-26); Blood Urea Nitrogen 21 mg/dL (6-20); Calcium 8.2 mg/dL (8.6-10.3); Carbon Dioxide 20 mEq/L (23-29); Chloride 102 mEq/L (98-107); Glucose 181 mg/dL (70-105); Osmolality,Calculated 280 (280-300); Potassium 4.5 mEq/L (3.5-5.1); Sodium 131 mEq/L (136-145); eGFR For African Americans > 60 (> 60); eGFR For Non-African Americans > 60 (> 60)
[2020-05-15] MEDS ORDERED: Insulin DETEMIR 100 UNIT/ML X5UNITS SUBQ ONE (23:30)
[2020-05-15 23:45] LABS: Bilirubin,Urine Negative (Negative); Blood,Urine Negative (Negative); Clarity,Urine Clear (Clear); Color,Urine Light-Yellow (Yellow); Glucose,Urine (UA) >=1000 mg/dL (Normal); Ketones,Urine 10 mg/dL (Negative); Leukocyte Esterase,Urine Moderate (Negative); Mucus,Urine Few per lpf (None-Few); Nitrite,Urine Negative (Negative); PH,Urine 6.5 pH Units (5.0-8.0); Protein,Urine 30 mg/dL (Neg-Trace); Squamous Epithelial Cell,Urine Few per hpf (None-Few); Urobilinogen,Urine Normal (Normal); WBC,Urine TNTC per hpf (0-3)
[2020-05-16] MEDS: Ipratropium 1 PUFF INHALER IH SCH ×4 (03:54→19:56)
[2020-05-16] MEDS: *HR* Enoxaparin 30 MG/0.3 ML SYRINGE SQ SCH (05:08)
[2020-05-16 06:02] LABS: Magnesium 2.5 mg/dL (1.6-2.6); Phosphorous 2.6 mg/dL (2.7-4.5)
[2020-05-16 06:03] LABS: BUN/Creatinine Ratio 24 (6-26); Blood Urea Nitrogen 22 mg/dL (6-20); Calcium 8.2 mg/dL (8.6-10.3); Carbon Dioxide 22 mEq/L (23-29); Chloride 101 mEq/L (98-107); Glucose 280 mg/dL (70-105); Osmolality,Calculated 287 (280-300); Potassium 4.9 mEq/L (3.5-5.1); Sodium 132 mEq/L (136-145); eGFR For African Americans > 60 (> 60); eGFR For Non-African Americans > 60 (> 60)
[2020-05-16 06:07] LABS: Basophils % 0.2 %; Hematocrit 37.2 % (37.5-50.1); Hemoglobin 11.8 g/dL (12.9-16.9); Immature Granulocytes % 2.6 % (0-4); Lymphocytes % 10.5 %; Mean Corpuscular HGB Conc 31.7 g/dL (31.6-35.5); Mean Corpuscular Hemoglobin 25.9 pg (28.0-33.3); Mean Corpuscular Volume 81.6 fL (83.0-100.0); Mean Platelet Volume 9.9 fL (9.4-12.4); Monocytes # 0.7 K/mcL (0.0-1.3); Monocytes % 7.7 %; Neutrophils # 7.2 K/mcL (1.6-8.9); Platelet Count 190 K/mcL (140-400); Red Blood Count 4.56 M/mcL (4.19-5.50); Red Cell Distribution Width 14.6 % (11.5-14.5); White Blood Count 9.1 K/mcL (4.3-11.1)
[2020-05-16 06:11] LABS: C-Reactive Protein 108 mg/L (Less than 10); Lactate Dehydrogenase 194 Units/L (140-271)
[2020-05-16 06:22] LABS: Ferritin 391 ng/mL (20-250)
[2020-05-16] MEDS ORDERED: Insulin DETEMIR 100 UNIT/ML X5UNITS SQ STA (08:07)
[2020-05-16] MEDS ORDERED: Insulin DETEMIR 100 UNIT/ML X5UNITS SUBQ STA (08:07)
[2020-05-16] MEDS: lisinopriL 20 MG TABLET PO SCH (10:01)
[2020-05-16] MEDS: Ampicillin/Sulbactam 3,000 MG in 0.9 % Sodium Chloride Mini Bag 100 ML IVPB SCH ×3 (10:01→21:47)
[2020-05-16] MEDS: Furosemide 40 MG TABLET PO SCH (10:01)
[2020-05-16] MEDS: Gabapentin 300 MG CAPSULE PO SCH (10:01)
[2020-05-16] MEDS: Calcium Gluconate 1gm/50mL 1 GM/50 ML BAG IVPB SCH ×2 (10:05→10:55)
[2020-05-16] MEDS: Insulin LISPRO 300 UNITS/3 ML VIAL SUBQ SCH ×4 (10:35→16:34)
[2020-05-16] MEDS ORDERED: Insulin LISPRO 300 UNITS/3 ML VIAL SUBQ SCH ×3 (21:00→21:15)
[2020-05-16] MEDS ORDERED: Insulin LISPRO 300 UNITS/3 ML VIAL SUBQ ONE (21:14)
[2020-05-16] MEDS: rOPINIRole 1 MG TABLET PO SCH (21:49)
[2020-05-16] MEDS: Gabapentin 400 MG CAPSULE PO SCH (21:49)
[2020-05-16] MEDS: Insulin DETEMIR 100 UNIT/ML X5UNITS SUBQ SCH (21:49)
[2020-05-16] MEDS: Acetaminophen 325 MG TABLET PO PRN (22:43)
[2020-05-16] MEDS: traZODone 50 MG TABLET PO SCH (22:52)
[2020-05-17] MEDS: Ampicillin/Sulbactam 3,000 MG in 0.9 % Sodium Chloride Mini Bag 100 ML IVPB SCH ×4 (03:30→20:11)
[2020-05-17] MEDS: Ipratropium 1 PUFF INHALER IH SCH ×4 (03:44→20:00)
[2020-05-17] MEDS: *HR* Enoxaparin 40 MG/0.4 ML SYRINGE SQ SCH (05:55)
[2020-05-17 06:02] LABS: Basophils % 0.4 %; Eosinophils % 0.2 %; Hematocrit 35.7 % (37.5-50.1); Hemoglobin 11.5 g/dL (12.9-16.9); Immature Granulocytes % 5.6 % (0-4); Lymphocytes # 1.1 K/mcL (0.6-4.6); Lymphocytes % 18.9 %; Mean Corpuscular HGB Conc 32.2 g/dL (31.6-35.5); Mean Corpuscular Hemoglobin 25.9 pg (28.0-33.3); Mean Corpuscular Volume 80.4 fL (83.0-100.0); Mean Platelet Volume 9.9 fL (9.4-12.4); Monocytes # 0.7 K/mcL (0.0-1.3); Monocytes % 12.7 %; Platelet Count 164 K/mcL (140-400); Red Blood Count 4.44 M/mcL (4.19-5.50); Red Cell Distribution Width 14.4 % (11.5-14.5); Segmented Neutrophils % 62.2 %; White Blood Count 5.7 K/mcL (4.3-11.1)
[2020-05-17 06:19] LABS: Neutrophils # 3.6 K/mcL (1.6-8.9)
[2020-05-17 06:22] LABS: Alanine Aminotransferase 39 Units/L (7-52); Albumin 3.1 g/dL (3.5-5.7); Albumin/Globulin Ratio 0.9 (1.1-2.2); Alkaline Phosphatase 67 Units/L (34-104); Aspartate Amino Transferase 36 Units/L (13-39); BUN/Creatinine Ratio 21 (6-26); Bilirubin,Total 0.4 mg/dL (0.3-1.0); Blood Urea Nitrogen 21 mg/dL (6-20); Calcium 8.3 mg/dL (8.6-10.3); Carbon Dioxide 25 mEq/L (23-29); Chloride 100 mEq/L (98-107); Globulin 3.4 g/dL (2.4-3.5); Glucose 409 mg/dL (70-105); Magnesium 2.2 mg/dL (1.6-2.6); Osmolality,Calculated 292 (280-300); Phosphorous 2.9 mg/dL (2.7-4.5); Potassium 4.9 mEq/L (3.5-5.1); Sodium 131 mEq/L (136-145); Total Protein 6.5 g/dL (6.4-8.9); eGFR For African Americans > 60 (> 60); eGFR For Non-African Americans > 60 (> 60)
[2020-05-17 06:27] LABS: Lactate Dehydrogenase 158 Units/L (140-271)
[2020-05-17 06:39] LABS: Ferritin 304 ng/mL (20-250)
[2020-05-17 06:43] LABS: Platelet Estimate Normal (Normal); Reactive Lymphocytes Present (Not Present)
[2020-05-17] MEDS: Insulin LISPRO 300 UNITS/3 ML VIAL SUBQ SCH ×2 (06:55→14:21)
[2020-05-17 07:48] LABS: C-Reactive Protein 43 mg/L (Less than 10)
[2020-05-17] MEDS: Furosemide 40 MG TABLET PO SCH (08:30)
[2020-05-17] MEDS: Gabapentin 400 MG CAPSULE PO SCH ×3 (08:36→20:12)
[2020-05-17] MEDS: lisinopriL 20 MG TABLET PO SCH (08:37)
[2020-05-17] MEDS: Insulin DETEMIR 100 UNIT/ML X5UNITS SUBQ SCH ×2 (11:31→20:12)
[2020-05-17] MEDS ORDERED: Insulin DETEMIR 100 UNIT/ML X5UNITS SUBQ ONE (13:14)
[2020-05-17] MEDS ORDERED: Insulin Regular, Human 100 UNIT/ML IV PRN ×2 (16:26)
[2020-05-17] MEDS ORDERED: Insulin Regular, Human 100 UNIT/ML IV ONE (16:26)
[2020-05-17] MEDS ORDERED: Insulin Human Regular 100 UNIT in 0.9 % Sodium Chloride 100 ML IVC SCH (16:30)
[2020-05-17] MEDS ORDERED: Insulin Human Regular 8 UNIT in 0.9 % Sodium Chloride 10 ML IV ONE (16:46)
[2020-05-17 17:42] LABS: Amphetamines NEGATIVE ng/mL (Cutoff 20); Barbiturates NEGATIVE ng/mL (Cutoff 50); Benzodiazepines NEGATIVE ng/mL (Cutoff 50); Buprenorphine NEGATIVE ng/mL (Cutoff 1); Cocaine NEGATIVE ng/mL (Cutoff 20); Methadone NEGATIVE ng/mL (Cutoff 25); Methamphetamines NEGATIVE ng/mL (Cutoff 20); Opiates NEGATIVE ng/mL (Cutoff 20); Phencyclidine NEGATIVE ng/mL (Cutoff 10)
[2020-05-17 18:01] LABS: VBG HCO3 22 mEq/L (21-27); VBG PCO2 35 mmHg (41-51); VBG PO2 213 mmHg (25-50)
[2020-05-17] MEDS ORDERED: 0.9 % Sodium Chloride 500 ML IVC ONE (18:15)
[2020-05-17] MEDS: rOPINIRole 1 MG TABLET PO SCH (20:12)
[2020-05-17] MEDS: traZODone 50 MG TABLET PO SCH (20:12)
[2020-05-18] MEDS: Ampicillin/Sulbactam 3,000 MG in 0.9 % Sodium Chloride Mini Bag 100 ML IVPB SCH ×4 (04:01→20:33)
[2020-05-18] MEDS: Ipratropium 1 PUFF INHALER IH SCH ×4 (04:12→21:01)
[2020-05-18] MEDS: *HR* Enoxaparin 40 MG/0.4 ML SYRINGE SQ SCH (06:08)
[2020-05-18 07:43] LABS: Hematocrit 39.1 % (37.5-50.1); Hemoglobin 12.3 g/dL (12.9-16.9); Mean Corpuscular HGB Conc 31.5 g/dL (31.6-35.5); Mean Corpuscular Volume 79.5 fL (83.0-100.0); Mean Platelet Volume 9.6 fL (9.4-12.4); Nucleated Red Blood Cells 0.3 /100 WBC (0); Platelet Count 193 K/mcL (140-400); Red Blood Count 4.92 M/mcL (4.19-5.50); Red Cell Distribution Width 14.2 % (11.5-14.5); White Blood Count 7.9 K/mcL (4.3-11.1)
[2020-05-18 07:59] LABS: Alanine Aminotransferase 65 Units/L (7-52); Albumin 3.4 g/dL (3.5-5.7); Albumin/Globulin Ratio 0.9 (1.1-2.2); Alkaline Phosphatase 71 Units/L (34-104); Aspartate Amino Transferase 47 Units/L (13-39); BUN/Creatinine Ratio 19 (6-26); Bilirubin,Total 0.4 mg/dL (0.3-1.0); Blood Urea Nitrogen 18 mg/dL (6-20); Calcium 8.5 mg/dL (8.6-10.3); Carbon Dioxide 26 mEq/L (23-29); Chloride 96 mEq/L (98-107); Globulin 3.7 g/dL (2.4-3.5); Glucose 357 mg/dL (70-105); Osmolality,Calculated 288 (280-300); Potassium 4.2 mEq/L (3.5-5.1); Sodium 131 mEq/L (136-145); Total Protein 7.1 g/dL (6.4-8.9); eGFR For African Americans > 60 (> 60); eGFR For Non-African Americans > 60 (> 60)
[2020-05-18 08:02] LABS: Lactate Dehydrogenase 171 Units/L (140-271)
[2020-05-18 08:18] LABS: Ferritin 264 ng/mL (20-250)
[2020-05-18] MEDS ORDERED: *HR* LORazepam 2 MG/ML VIAL IVP PRN (08:20)
[2020-05-18] MEDS ORDERED: Isovue-370 500 ML BOTTLE IVP ONE (08:20)
[2020-05-18 08:27] LABS: Eosinophils # 0.2 K/mcL (0.0-0.6); Lymphocytes # 1.9 K/mcL (0.6-4.6); Neutrophils # 4.9 K/mcL (1.6-8.9)
[2020-05-18 08:28] LABS: Platelet Estimate Normal (Normal)
[2020-05-18] MEDS: Gabapentin 400 MG CAPSULE PO SCH ×3 (09:02→20:31)
[2020-05-18] MEDS: Furosemide 40 MG TABLET PO SCH (09:02)
[2020-05-18] MEDS: Insulin LISPRO 300 UNITS/3 ML VIAL SUBQ SCH ×4 (09:03→20:35)
[2020-05-18] MEDS: lisinopriL 20 MG TABLET PO SCH (09:03)
[2020-05-18 13:42] LABS: C-Reactive Protein 29 mg/L (Less than 10)
[2020-05-18] MEDS: traZODone 50 MG TABLET PO SCH (20:30)
[2020-05-18] MEDS: Insulin DETEMIR 100 UNIT/ML X5UNITS SUBQ SCH (20:31)
[2020-05-18] MEDS: rOPINIRole 1 MG TABLET PO SCH (20:33)
[2020-05-18] MEDS: Chloraseptic Spray 177 ML BOTTLE MM PRN (20:33)
[2020-05-18] MEDS ORDERED: Insulin LISPRO 300 UNITS/3 ML VIAL SUBQ SCH (21:00)
[2020-05-19] MEDS: Ampicillin/Sulbactam 3,000 MG in 0.9 % Sodium Chloride Mini Bag 100 ML IVPB SCH ×4 (01:42→22:08)
[2020-05-19] MEDS: Ipratropium 1 PUFF INHALER IH SCH ×4 (04:22→22:09)
[2020-05-19] MEDS: *HR* Enoxaparin 40 MG/0.4 ML SYRINGE SQ SCH (06:17)
[2020-05-19 07:46] LABS: Basophils # 0.1 K/mcL (0.0-0.2); Basophils % 0.9 %; Eosinophils # 0.1 K/mcL (0.0-0.6); Eosinophils % 1.3 %; Hematocrit 38.9 % (37.5-50.1); Hemoglobin 12.5 g/dL (12.9-16.9); Immature Granulocytes % 8.4 % (0-4); Lymphocytes # 1.2 K/mcL (0.6-4.6); Lymphocytes % 16.1 %; Mean Corpuscular HGB Conc 32.1 g/dL (31.6-35.5); Mean Corpuscular Hemoglobin 25.3 pg (28.0-33.3); Mean Corpuscular Volume 78.6 fL (83.0-100.0); Mean Platelet Volume 9.3 fL (9.4-12.4); Monocytes # 0.6 K/mcL (0.0-1.3); Monocytes % 8.2 %; Platelet Count 166 K/mcL (140-400); Red Blood Count 4.95 M/mcL (4.19-5.50); Red Cell Distribution Width 14.3 % (11.5-14.5); Segmented Neutrophils % 65.1 %; White Blood Count 7.6 K/mcL (4.3-11.1)
[2020-05-19 08:01] LABS: Alanine Aminotransferase 73 Units/L (7-52); Albumin 3.2 g/dL (3.5-5.7); Albumin/Globulin Ratio 0.9 (1.1-2.2); Alkaline Phosphatase 69 Units/L (34-104); Aspartate Amino Transferase 40 Units/L (13-39); BUN/Creatinine Ratio 15 (6-26); Bilirubin,Total 0.5 mg/dL (0.3-1.0); Blood Urea Nitrogen 15 mg/dL (6-20); Calcium 8.3 mg/dL (8.6-10.3); Carbon Dioxide 25 mEq/L (23-29); Chloride 97 mEq/L (98-107); Globulin 3.4 g/dL (2.4-3.5); Glucose 332 mg/dL (70-105); Magnesium 1.7 mg/dL (1.6-2.6); Osmolality,Calculated 282 (280-300); Phosphorous 3.8 mg/dL (2.7-4.5); Potassium 4.2 mEq/L (3.5-5.1); Sodium 129 mEq/L (136-145); Total Protein 6.6 g/dL (6.4-8.9); eGFR For African Americans > 60 (> 60); eGFR For Non-African Americans > 60 (> 60)
[2020-05-19] MEDS: Furosemide 40 MG TABLET PO SCH (08:11)
[2020-05-19] MEDS: Gabapentin 400 MG CAPSULE PO SCH ×3 (08:12→22:09)
[2020-05-19] MEDS: lisinopriL 20 MG TABLET PO SCH (08:12)
[2020-05-19] MEDS: Insulin LISPRO 300 UNITS/3 ML VIAL SUBQ SCH ×4 (08:17→22:09)
[2020-05-19 09:00] LABS: Anisocytosis 1+ (Not Present); Platelet Estimate Normal (Normal)
[2020-05-19] MEDS: Chloraseptic Spray 177 ML BOTTLE MM PRN (20:20)
[2020-05-19] MEDS: traZODone 50 MG TABLET PO SCH (22:08)
[2020-05-19] MEDS: rOPINIRole 1 MG TABLET PO SCH (22:09)
[2020-05-19] MEDS: Insulin DETEMIR 100 UNIT/ML X5UNITS SUBQ SCH (22:35)
[2020-05-20] MEDS: Ampicillin/Sulbactam 3,000 MG in 0.9 % Sodium Chloride Mini Bag 100 ML IVPB SCH ×4 (01:57→20:04)
[2020-05-20] MEDS: Ipratropium 1 PUFF INHALER IH SCH ×4 (03:45→22:11)
[2020-05-20] MEDS: *HR* Enoxaparin 40 MG/0.4 ML SYRINGE SQ SCH (05:51)
[2020-05-20] MEDS: lisinopriL 20 MG TABLET PO SCH (09:18)
[2020-05-20] MEDS: Gabapentin 400 MG CAPSULE PO SCH ×3 (09:20→20:05)
[2020-05-20] MEDS: Furosemide 40 MG TABLET PO SCH (09:20)
[2020-05-20] MEDS: Insulin LISPRO 300 UNITS/3 ML VIAL SUBQ SCH ×4 (09:22→20:04)
[2020-05-20 10:41] LABS: Hematocrit 39.4 % (37.5-50.1); Hemoglobin 12.7 g/dL (12.9-16.9); Mean Corpuscular HGB Conc 32.2 g/dL (31.6-35.5); Mean Corpuscular Hemoglobin 25.8 pg (28.0-33.3); Mean Corpuscular Volume 79.9 fL (83.0-100.0); Mean Platelet Volume 9.1 fL (9.4-12.4); Platelet Count 182 K/mcL (140-400); Red Blood Count 4.93 M/mcL (4.19-5.50); Red Cell Distribution Width 14.3 % (11.5-14.5); White Blood Count 7.8 K/mcL (4.3-11.1)
[2020-05-20 11:00] LABS: BUN/Creatinine Ratio 15 (6-26); Blood Urea Nitrogen 13 mg/dL (6-20); Calcium 8.7 mg/dL (8.6-10.3); Carbon Dioxide 26 mEq/L (23-29); Chloride 94 mEq/L (98-107); Glucose 247 mg/dL (70-105); Osmolality,Calculated 272 (280-300); Potassium 4.3 mEq/L (3.5-5.1); Sodium 127 mEq/L (136-145); eGFR For African Americans > 60 (> 60); eGFR For Non-African Americans > 60 (> 60)
[2020-05-20 11:13] LABS: Eosinophils # 0.2 K/mcL (0.0-0.6); Lymphocytes # 1.9 K/mcL (0.6-4.6); Monocytes # 0.6 K/mcL (0.0-1.3); Neutrophils # 5.2 K/mcL (1.6-8.9); Platelet Estimate Normal (Normal)
[2020-05-20] MEDS: rOPINIRole 1 MG TABLET PO SCH (20:05)
[2020-05-20] MEDS: Insulin DETEMIR 100 UNIT/ML X5UNITS SUBQ SCH (20:05)
[2020-05-20] MEDS: traZODone 50 MG TABLET PO SCH (20:05)
[2020-05-21] MEDS: Ampicillin/Sulbactam 3,000 MG in 0.9 % Sodium Chloride Mini Bag 100 ML IVPB SCH ×4 (02:13→20:02)
[2020-05-21] MEDS: Ipratropium 1 PUFF INHALER IH SCH ×4 (04:09→22:23)
[2020-05-21] MEDS: *HR* Enoxaparin 40 MG/0.4 ML SYRINGE SQ SCH (05:23)
[2020-05-21 06:31] LABS: Hematocrit 36.9 % (37.5-50.1); Hemoglobin 11.5 g/dL (12.9-16.9); Mean Corpuscular HGB Conc 31.2 g/dL (31.6-35.5); Mean Corpuscular Hemoglobin 25.1 pg (28.0-33.3); Mean Corpuscular Volume 80.4 fL (83.0-100.0); Mean Platelet Volume 9.4 fL (9.4-12.4); Platelet Count 150 K/mcL (140-400); Red Blood Count 4.59 M/mcL (4.19-5.50); Red Cell Distribution Width 14.5 % (11.5-14.5); White Blood Count 5.9 K/mcL (4.3-11.1)
[2020-05-21 06:49] LABS: BUN/Creatinine Ratio 15 (6-26); Blood Urea Nitrogen 16 mg/dL (6-20); Calcium 8.7 mg/dL (8.6-10.3); Carbon Dioxide 31 mEq/L (23-29); Chloride 94 mEq/L (98-107); Glucose 277 mg/dL (70-105); Osmolality,Calculated 283 (280-300); Potassium 4.3 mEq/L (3.5-5.1); Sodium 131 mEq/L (136-145); eGFR For African Americans > 60 (> 60); eGFR For Non-African Americans > 60 (> 60)
[2020-05-21 06:55] LABS: Eosinophils # 0.2 K/mcL (0.0-0.6); Lymphocytes # 1.2 K/mcL (0.6-4.6); Monocytes # 0.4 K/mcL (0.0-1.3); Neutrophils # 4.1 K/mcL (1.6-8.9); Platelet Estimate Normal (Normal)
[2020-05-21] MEDS: Furosemide 40 MG TABLET PO SCH (08:22)
[2020-05-21] MEDS: Gabapentin 400 MG CAPSULE PO SCH ×3 (08:23→20:02)
[2020-05-21] MEDS: lisinopriL 20 MG TABLET PO SCH (08:23)
[2020-05-21] MEDS: Insulin LISPRO 300 UNITS/3 ML VIAL SUBQ SCH ×4 (08:26→20:01)
[2020-05-21] MEDS ORDERED: Isovue-370 500 ML BOTTLE IVP ONE (10:47)
[2020-05-21] MEDS ORDERED: Metoclopramide 10 MG/2 ML VIAL ONE (14:10)
[2020-05-21] MEDS ORDERED: Famotidine 20 MG/2 ML VIAL ONE (14:10)
[2020-05-21] MEDS ORDERED: Acetaminophen IV 1,000 MG/100 ML BAG IVPB ONE (14:10)
[2020-05-21] MEDS ORDERED: *HR* FentaNYL (PF) 100 MCG/2 ML VIAL ONE ×2 (14:40→16:13)
[2020-05-21] MEDS ORDERED: Lidocaine HCL 4 ML Topical Solution (Laryng-O-Jet Kit Sterile Pak) TP ONE (14:40)
[2020-05-21] MEDS ORDERED: *HR* Succinylcholine 200 MG/10 ML VIAL IVP ONE (14:40)
[2020-05-21] MEDS ORDERED: Ondansetron 4 MG/2 ML VIAL ONE (14:40)
[2020-05-21] MEDS ORDERED: *HR* Propofol 200 MG/20 ML VIAL IVP ONE (14:40)
[2020-05-21] MEDS ORDERED: Lidocaine -MPF 2% 2 ML VIAL ONE (14:40)
[2020-05-21] MEDS ORDERED: *HR* Rocuronium Bromide 50 MG/5 ML VIAL ONE ×2 (14:40→16:20)
[2020-05-21] MEDS ORDERED: Bupivacaine-MPF 0.25% 10 ML VIAL ONE (15:16)
[2020-05-21] MEDS: rOPINIRole 1 MG TABLET PO SCH (20:02)
[2020-05-21] MEDS: traZODone 50 MG TABLET PO SCH (20:02)
[2020-05-21] MEDS: Insulin DETEMIR 100 UNIT/ML X5UNITS SUBQ SCH (20:10)
[2020-05-22 02:03] LABS: Basophils % 0.4 %; Eosinophils % 0.1 %; Lymphocytes # 0.9 K/mcL (0.6-4.6); Lymphocytes % 11.8 %; Mean Corpuscular HGB Conc 31.2 g/dL (31.6-35.5); Mean Corpuscular Hemoglobin 25.1 pg (28.0-33.3); Mean Corpuscular Volume 80.5 fL (83.0-100.0); Mean Platelet Volume 9.6 fL (9.4-12.4); Monocytes # 0.3 K/mcL (0.0-1.3); Monocytes % 3.3 %; Neutrophils # 6.1 K/mcL (1.6-8.9); Platelet Count 194 K/mcL (140-400); Red Blood Count 5.22 M/mcL (4.19-5.50); Red Cell Distribution Width 14.2 % (11.5-14.5); Segmented Neutrophils % 79.4 %; White Blood Count 7.6 K/mcL (4.3-11.1)
[2020-05-22 02:04] LABS: Hemoglobin 13.1 g/dL (12.9-16.9)
[2020-05-22] MEDS: Ipratropium 1 PUFF INHALER IH SCH ×2 (03:59→10:20)
[2020-05-22 04:56] LABS: BUN/Creatinine Ratio 20 (6-26); Blood Urea Nitrogen 17 mg/dL (6-20); Calcium 9.1 mg/dL (8.6-10.3); Carbon Dioxide 25 mEq/L (23-29); Chloride 93 mEq/L (98-107); Glucose 429 mg/dL (70-105); Osmolality,Calculated 284 (280-300); Potassium 4.9 mEq/L (3.5-5.1); Sodium 127 mEq/L (136-145); eGFR For African Americans > 60 (> 60); eGFR For Non-African Americans > 60 (> 60)
[2020-05-22] MEDS: *HR* Enoxaparin 40 MG/0.4 ML SYRINGE SQ SCH (05:28)
[2020-05-22] MEDS: Furosemide 40 MG TABLET PO SCH (08:43)
[2020-05-22] MEDS: Gabapentin 400 MG CAPSULE PO SCH ×2 (08:43→14:49)
[2020-05-22] MEDS: lisinopriL 20 MG TABLET PO SCH (08:44)
[2020-05-22] MEDS: Insulin LISPRO 300 UNITS/3 ML VIAL SUBQ SCH ×2 (08:44→11:33)
[2020-05-22] MEDS ORDERED: Insulin DETEMIR 100 UNIT/ML X5UNITS SUBQ ONE (08:50)
[2020-05-22] MEDS: Insulin DETEMIR 100 UNIT/ML X5UNITS SUBQ SCH (10:17)
[2020-05-22 11:29] VITALS: BP 114/76
== END 2020-05-22 16:35 | disposition home or self-care (01) | DRG 710 ==
LOC: EMEROOARM 07:43 → CDU 07:43 → SUATTDRO 11:47 → CDU 12:59 → 3BNU 16:23 → 2NENU 05-15 18:12 → SUATTDRO 05-16 17:04 → 3BNU 05-19 20:38
PROVIDERS: ADMIT Internal Medicine; ATTEND Student in an Organized Health Care Education/Training Program

== ENCOUNTER 2021-03-16 11:30 | Observation (INO) ==
[2021-03-16] MEDS ORDERED: Isovue-370 500 ML BOTTLE IVP ONE (11:55)
[2021-03-16] MEDS ORDERED: Aspirin 325 MG TABLET PO ONE (11:57)
[2021-03-16] MEDS ORDERED: Ondansetron 4 MG/2 ML VIAL IVP ONE (11:57)
[2021-03-16 12:05] LABS: Basophils % 0.3 %; Eosinophils % 0.2 %; Hematocrit 52.1 % (37.5-50.1); Hemoglobin 16.6 g/dL (12.9-16.9); Immature Granulocytes % 0.5 % (0-4); Lymphocytes # 2.5 K/mcL (0.6-4.6); Lymphocytes % 18.5 %; Mean Corpuscular HGB Conc 31.9 g/dL (31.6-35.5); Mean Corpuscular Hemoglobin 25.5 pg (28.0-33.3); Mean Corpuscular Volume 80.2 fL (83.0-100.0); Mean Platelet Volume 9.8 fL (9.4-12.4); Monocytes # 1.2 K/mcL (0.0-1.3); Neutrophils # 9.5 K/mcL (1.6-8.9); Platelet Count 245 K/mcL (140-400); Red Cell Distribution Width 14.6 % (11.5-14.5); Segmented Neutrophils % 71.5 %
[2021-03-16 12:07] LABS: White Blood Count 13.3 K/mcL (4.3-11.1)
[2021-03-16 12:14] LABS: INR 1.3; Prothrombin Time 14.6 Seconds (9.4-12.1)
[2021-03-16 12:17] LABS: Activated Partial Thrombo Time 38.2 Seconds (26.0-36.0)
[2021-03-16 12:28] LABS: BUN/Creatinine Ratio 12 (6-26); Blood Urea Nitrogen 25 mg/dL (6-20); Carbon Dioxide 23 mEq/L (23-29); Chloride 97 mEq/L (98-107); Glucose 204 mg/dL (70-105); Osmolality,Calculated 290 (280-300); Potassium 3.6 mEq/L (3.5-5.1); Sodium 135 mEq/L (136-145); Troponin I < 0.03 ng/mL (< 0.04); eGFR For African Americans 42 (> 60); eGFR For Non-African Americans 34 (> 60)
[2021-03-16] MEDS ORDERED: 0.9 % Sodium Chloride 1,000 ML IVC ONE ×2 (12:31→14:18)
[2021-03-16] MEDS ORDERED: *HR* Heparin 5,000 UNIT/ML VIAL IVP PRN ×2 (14:19)
[2021-03-16] MEDS ORDERED: *HR* Heparin 5,000 UNIT/ML VIAL IVP ONE (14:19)
[2021-03-16] MEDS ORDERED: Naloxone 0.4 MG/ML INJ IVP PRN (14:55)
[2021-03-16] MEDS ORDERED: Ondansetron 4 MG/2 ML VIAL IVP PRN (14:55)
[2021-03-16] MEDS ORDERED: D5% in Water 1,000 ML IVC PRN (14:57)
[2021-03-16] MEDS ORDERED: *HR* Dextrose 50 % in Water (Syg) 50 ML SYRINGE IVP PRN (14:57)
[2021-03-16] MEDS ORDERED: Dextrose Gel 15 GM/37.5 ML TUBE PO PRN ×2 (14:57)
[2021-03-16] MEDS ORDERED: Perflutren Lipid Microsphere 1.3 ML in 0.9 % Sodium Chloride 8.7 ML IVP PRN (14:58)
[2021-03-16] MEDS ORDERED: 0.9 % Sodium Chloride 1,000 ML IVC SCH (15:00)
[2021-03-16] MEDS: Heparin 25,000UNIT/250ML 1/2NS 25,000 UNIT/250 ML IV.SOLN IVC SCH (15:01)
[2021-03-16 15:20] LABS: Creatine Kinase 236 Units/L (30-223)
[2021-03-16] MEDS: Nitroglycerin 0.4 MG TAB.SUBL SL PRN ×2 (15:51→15:56)
[2021-03-16] MEDS ORDERED: Morphine Sulfate 2 MG/ML SYRINGE IVP ONE (15:59)
[2021-03-16] MEDS: Insulin LISPRO 300 UNITS/3 ML VIAL SUBQ SCH (16:05)
[2021-03-16] MEDS ORDERED: carvediloL 6.25 MG TABLET PO SCH (17:00)
[2021-03-16] MEDS: traZODone 50 MG TABLET PO SCH (19:46)
[2021-03-16] MEDS: Gabapentin 400 MG CAPSULE PO SCH (19:46)
[2021-03-16] MEDS: rOPINIRole 1 MG TABLET PO SCH (21:35)
[2021-03-16] MEDS: Acetaminophen 325 MG TABLET PO PRN (21:35)
[2021-03-16 23:24] LABS: Bacteria,Urine Few per hpf (None-Few); Bilirubin,Urine Negative (Negative); Blood,Urine Negative (Negative); Clarity,Urine Clear (Clear); Color,Urine Yellow (Yellow); Glucose,Urine (UA) Normal (Normal); Ketones,Urine Trace mg/dL (Negative); Leukocyte Esterase,Urine Moderate (Negative); Mucus,Urine Few per lpf (None-Few); Nitrite,Urine Negative (Negative); Protein,Urine 100 mg/dL (Neg-Trace); Specific Gravity,Urine > 1.030 (1.010-1.025); Squamous Epithelial Cell,Urine Few per hpf (None-Few); WBC,Urine 50-100 per hpf (0-3)
[2021-03-16 23:34] LABS: Amphetamine Screen,Urine Positive ng/mL (Cutoff=1000); Barbiturate Screen,Urine Negative ng/mL (Cutoff=200); Benzodiazepines Screen,Urine Negative ng/mL (Cutoff=200); Cannabinoid Screen,Urine Positive ng/mL (Cutoff = 50); Cocaine Screen,Urine Negative ng/mL (Cutoff= 300); Opiate Screen,Urine Positive ng/mL (Cutoff=300); Phencyclidine Screen,Urine Negative ng/mL (Cutoff=25)
[2021-03-17] MEDS: Acetaminophen 325 MG TABLET PO PRN ×2 (05:56→20:03)
[2021-03-17 06:18] LABS: Basophils % 0.5 %; Eosinophils # 0.1 K/mcL (0.0-0.6); Eosinophils % 1.2 %; Hematocrit 44.7 % (37.5-50.1); Immature Granulocytes % 0.3 % (0-4); Lymphocytes # 2.5 K/mcL (0.6-4.6); Lymphocytes % 39.6 %; Mean Corpuscular HGB Conc 31.5 g/dL (31.6-35.5); Mean Corpuscular Hemoglobin 25.7 pg (28.0-33.3); Mean Corpuscular Volume 81.6 fL (83.0-100.0); Mean Platelet Volume 9.9 fL (9.4-12.4); Monocytes # 0.6 K/mcL (0.0-1.3); Monocytes % 9.7 %; Neutrophils # 3.1 K/mcL (1.6-8.9); Platelet Count 165 K/mcL (140-400); Red Blood Count 5.48 M/mcL (4.19-5.50); Red Cell Distribution Width 14.5 % (11.5-14.5); Segmented Neutrophils % 48.7 %
[2021-03-17 06:19] LABS: Hemoglobin 14.1 g/dL (12.9-16.9); White Blood Count 6.4 K/mcL (4.3-11.1)
[2021-03-17 06:39] LABS: Magnesium 1.8 mg/dL (1.6-2.6); Potassium 3.3 mEq/L (3.5-5.1)
[2021-03-17] MEDS: Insulin LISPRO 300 UNITS/3 ML VIAL SUBQ SCH ×3 (08:10→17:38)
[2021-03-17] MEDS: Gabapentin 400 MG CAPSULE PO SCH ×3 (08:12→19:58)
[2021-03-17] MEDS: Cyanocobalamin (B-12) 1,000 MCG TABLET PO SCH (08:12)
[2021-03-17] MEDS: Metoprolol XL (24 HR) Succ 25 MG TAB.ER.24H PO SCH (08:12)
[2021-03-17] MEDS: Aspirin Enteric Coated 81 MG Tablet PO SCH (08:12)
[2021-03-17] MEDS: Cefdinir 300 MG CAPSULE PO SCH ×2 (09:29→19:58)
[2021-03-17] MEDS: Heparin 25,000UNIT/250ML 1/2NS 25,000 UNIT/250 ML IV.SOLN IVC SCH (09:30)
[2021-03-17] MEDS: traZODone 50 MG TABLET PO SCH (19:58)
[2021-03-17] MEDS: rOPINIRole 1 MG TABLET PO SCH (19:58)
[2021-03-17] MEDS: *HR* HYDROcodone/Acet 5/325 mg TABLET PO PRN (22:06)
[2021-03-18 01:16] LABS: BUN/Creatinine Ratio 19 (6-26); Blood Urea Nitrogen 23 mg/dL (6-20); Calcium 8.5 mg/dL (8.6-10.3); Carbon Dioxide 25 mEq/L (23-29); Chloride 104 mEq/L (98-107); Glucose 232 mg/dL (70-105); Magnesium 1.7 mg/dL (1.6-2.6); Osmolality,Calculated 293 (280-300); Phosphorous 3.1 mg/dL (2.7-4.5); Potassium 4.1 mEq/L (3.5-5.1); Sodium 136 mEq/L (136-145); eGFR For African Americans > 60 (> 60); eGFR For Non-African Americans > 60 (> 60)
[2021-03-18] MEDS: Cefdinir 300 MG CAPSULE PO SCH ×2 (08:29→21:04)
[2021-03-18] MEDS: Insulin LISPRO 300 UNITS/3 ML VIAL SUBQ SCH ×3 (08:29→17:02)
[2021-03-18] MEDS: Aspirin Enteric Coated 81 MG Tablet PO SCH (08:29)
[2021-03-18] MEDS: Gabapentin 400 MG CAPSULE PO SCH ×3 (08:29→21:04)
[2021-03-18] MEDS: Cyanocobalamin (B-12) 1,000 MCG TABLET PO SCH (08:29)
[2021-03-18] MEDS: Metoprolol XL (24 HR) Succ 25 MG TAB.ER.24H PO SCH (10:40)
[2021-03-18] MEDS: *HR* HYDROcodone/Acet 5/325 mg TABLET PO PRN ×2 (10:46→18:41)
[2021-03-18] MEDS: traZODone 50 MG TABLET PO SCH (21:04)
[2021-03-18] MEDS: rOPINIRole 1 MG TABLET PO SCH (21:04)
[2021-03-18] MEDS: Insulin DETEMIR 100 UNIT/ML X5UNITS SUBQ SCH (21:04)
[2021-03-18] MEDS: Acetaminophen 325 MG TABLET PO PRN (23:44)
[2021-03-19] MEDS: *HR* HYDROcodone/Acet 5/325 mg TABLET PO PRN ×2 (01:22→11:57)
[2021-03-19] MEDS: Insulin LISPRO 300 UNITS/3 ML VIAL SUBQ SCH ×2 (07:14→11:46)
[2021-03-19 11:22] VITALS: BP 156/90; PULSE 68; TEMP 97.5; O2SAT 99
[2021-03-19] MEDS: Insulin DETEMIR 100 UNIT/ML X5UNITS SUBQ SCH (11:54)
[2021-03-19] MEDS: Cyanocobalamin (B-12) 1,000 MCG TABLET PO SCH (11:57)
[2021-03-19] MEDS: Gabapentin 400 MG CAPSULE PO SCH ×2 (11:57→13:47)
[2021-03-19] MEDS: Cefdinir 300 MG CAPSULE PO SCH (11:57)
[2021-03-19] MEDS: Aspirin Enteric Coated 81 MG Tablet PO SCH (11:57)
== END 2021-03-19 15:32 | disposition home or self-care (01) ==
LOC: 3BNU 11:30 → EMEROOARM 11:30 → SUATTDRO 14:40 → 3BNU 15:24
PROVIDERS: ADMIT Pharmacist; ATTEND Internal Medicine